=== PATIENT | female | born 1970 | race Hispanic/Latino ===

== ENCOUNTER 2016-11-17 08:01 | Inpatient (IN) | payer MEDICAID, MEDICARE ==
[2016-11-17] MEDS ORDERED: Acetaminophen/Codeine 30-300mg Tablet ONE (20:08)
[2016-11-17] MEDS: Famotidine 20 MG TAB PER TUBE SCH (20:34)
[2016-11-17] MEDS: Metoprolol Tartrate 25 MG TAB PER TUBE SCH (20:34)
[2016-11-17] MEDS: LEVETIRACETAM 500 MG/5 ML PER TUBE SCH (20:35)
[2016-11-17] MEDS: Levemir Flexpen 100 UNITS/ML PEN SC SCH (20:35)
[2016-11-17] MEDS ORDERED: AMOXICILLIN 250 MG PER TUBE SCH (21:00)
[2016-11-17] MEDS: AMOXICILLIN 250 MG/5 ML PER TUBE SCH (21:31)
[2016-11-17] MEDS: DICYCLOMINE 10 MG/5 ML PER TUBE SCH (21:31)
[2016-11-18] MEDS: Enoxaparin Sodium 40 MG/0.4 ML SYRINGE SC SCH (05:21)
[2016-11-18] MEDS: Famotidine 20 MG TAB PER TUBE SCH ×2 (08:22→20:18)
[2016-11-18] MEDS: Metoprolol Tartrate 25 MG TAB PER TUBE SCH ×2 (08:23→20:18)
[2016-11-18] MEDS: AMOXICILLIN 250 MG/5 ML PER TUBE SCH ×3 (08:27→21:35)
[2016-11-18] MEDS: HumaLOG 300 UNITS/3 ML VIAL SC SCH ×3 (08:27→17:58)
[2016-11-18] MEDS: DICYCLOMINE 10 MG/5 ML PER TUBE SCH ×3 (09:54→22:15)
[2016-11-18] MEDS: LEVETIRACETAM 500 MG/5 ML PER TUBE SCH ×3 (10:48→21:34)
[2016-11-18] MEDS: Acetaminophen/Codeine 30-300mg Tablet PER TUBE PRN (20:18)
[2016-11-18] MEDS ORDERED: Insulin Regular 300 UNITS/3 ML VIAL ONE (21:26)
[2016-11-18] MEDS: Levemir Flexpen 100 UNITS/ML PEN SC SCH (21:33)
[2016-11-19] MEDS: Enoxaparin Sodium 40 MG/0.4 ML SYRINGE SC SCH (05:51)
[2016-11-19] MEDS: Metoprolol Tartrate 25 MG TAB PER TUBE SCH ×2 (08:14→20:11)
[2016-11-19] MEDS: Famotidine 20 MG TAB PER TUBE SCH ×2 (08:14→20:11)
[2016-11-19] MEDS: HumaLOG 300 UNITS/3 ML VIAL SC SCH ×3 (08:15→18:00)
[2016-11-19] MEDS: DICYCLOMINE 10 MG/5 ML PER TUBE SCH (08:17)
[2016-11-19] MEDS: LEVETIRACETAM 500 MG/5 ML PER TUBE SCH ×2 (08:24→20:17)
[2016-11-19] MEDS: AMOXICILLIN 250 MG/5 ML PER TUBE SCH ×2 (08:40→20:14)
[2016-11-19] MEDS ORDERED: Scopolamine 1.5 mg/72 hour Patch TOP PRN (15:42)
[2016-11-19] MEDS: Levemir Flexpen 100 UNITS/ML PEN SC SCH (20:16)
[2016-11-19] MEDS: Acetaminophen/Codeine 30-300mg Tablet PER TUBE PRN (20:34)
[2016-11-20] MEDS: Acetaminophen/Codeine 30-300mg Tablet PER TUBE PRN ×2 (04:36→20:01)
[2016-11-20] MEDS: Enoxaparin Sodium 40 MG/0.4 ML SYRINGE SC SCH (06:20)
[2016-11-20] MEDS: HumaLOG 300 UNITS/3 ML VIAL SC SCH ×3 (09:17→17:54)
[2016-11-20] MEDS: Metoprolol Tartrate 25 MG TAB PER TUBE SCH ×2 (09:18→20:01)
[2016-11-20] MEDS: Famotidine 20 MG TAB PER TUBE SCH ×2 (09:18→20:01)
[2016-11-20] MEDS: LEVETIRACETAM 500 MG/5 ML PER TUBE SCH ×2 (09:26→20:00)
[2016-11-20] MEDS: AMOXICILLIN 250 MG/5 ML PER TUBE SCH ×2 (09:30→20:00)
[2016-11-20] MEDS ORDERED: Bisacodyl 10 MG SUPP PR PRN (11:33)
[2016-11-20] MEDS: Milk Of Magnesia 30 ML UDCUP PER TUBE PRN (13:07)
[2016-11-20] MEDS ORDERED: cloNIDine 0.1mg/24 Hour PATCH TD SCH (18:30)
[2016-11-20] MEDS ORDERED: cloNIDine HCl 0.1 MG TAB ONE (18:32)
[2016-11-20] MEDS: Levemir Flexpen 100 UNITS/ML PEN SC SCH (20:26)
[2016-11-21] MEDS: Enoxaparin Sodium 40 MG/0.4 ML SYRINGE SC SCH (05:45)
[2016-11-21] MEDS: LEVETIRACETAM 500 MG/5 ML PER TUBE SCH ×2 (08:18→20:41)
[2016-11-21] MEDS: AMOXICILLIN 250 MG/5 ML PER TUBE SCH ×2 (08:19→20:40)
[2016-11-21] MEDS: Famotidine 20 MG TAB PER TUBE SCH ×2 (08:20→20:36)
[2016-11-21] MEDS: Metoprolol Tartrate 25 MG TAB PER TUBE SCH ×2 (08:21→20:36)
[2016-11-21] MEDS: Acetaminophen/Codeine 30-300mg Tablet PER TUBE PRN ×2 (08:21→20:37)
[2016-11-21] MEDS: HumaLOG 300 UNITS/3 ML VIAL SC SCH ×3 (08:22→17:10)
[2016-11-21] MEDS: Milk Of Magnesia 30 ML UDCUP PER TUBE PRN (12:22)
[2016-11-21] MEDS ORDERED: cloNIDine 0.1mg/24 Hour PATCH TD SCH (14:00)
[2016-11-21] MEDS: Levemir Flexpen 100 UNITS/ML PEN SC SCH (20:39)
[2016-11-22] MEDS: Acetaminophen/Codeine 30-300mg Tablet PER TUBE PRN (04:59)
[2016-11-22] MEDS: Enoxaparin Sodium 40 MG/0.4 ML SYRINGE SC SCH (05:01)
[2016-11-22 06:16] VITALS: BMI 24.4
[2016-11-22 06:44] LABS: #Basophils 0.1 thou/uL (0.0-0.2); #Eosinphils 0.2 thou/uL (0.0-0.7); #Lymphocytes 2.6 thou/uL (1.20-3.40); #Monocytes 1.2 thou/uL (0.11-0.59); #Neutrophils 11.6 thou/uL (1.40-6.50); %Basophils 0.7 % (0.0-1.0); %Lymphocytes 16.4 % (21.0-51.0); %Monocytes 7.6 % (0.0-10.0); %Neutrophils 74.2 % (42.0-75.0); Hemoglobin 12.2 g/dL (12.0-16.0); Mean Corpuscular HGB CONC 31.6 g/dL (32.0-36.0); Mean Corpuscular Hemoglobin 26.2 pg (27.0-31.0); Mean Corpuscular Volume 82.8 fl (81.0-99.0); Mean Platelet Volume 9.5 fL (7.4-10.4); Platelet Count 383 thou/uL (130-400); Red Blood Cell (RBC) Count 4.67 mill/uL (4.20-5.40); White Blood Cell (WBC) Count 15.6 thou/uL (4.8-10.8)
[2016-11-22 07:01] LABS: ALT (SGPT) 26 U/L (8-55); AST (SGOT) 26 U/L (5-34); Albumin 3.6 g/dL (3.5-5.0); Alkaline Phosphatase 89 U/L (40-150); Anion Gap 15 mmol/L (10-20); BUN (Urea Nitrogen) 27 mg/dL (7.0-18.7); Bilirubin, Total 0.2 mg/dL (0.2-1.2); Calc. Creatinine Clearance 99 mL/min (70-130); Calcium 9.4 mg/dL (7.8-10.44); Carbon Dioxide 24 mmol/L (22-29); Chloride 107 mmol/L (98-107); Estimated GFR-MDRD 85; Globulin 4.2 g/dL (2.4-3.5); Glucose 83 mg/dL (70-105); Potassium 4.4 mmol/L (3.5-5.1); Protein, Total 7.8 g/dL (6.0-8.3); Sodium 142 mmol/L (136-145)
[2016-11-22] MEDS ORDERED: Acetaminophen/Codeine 30-300mg Tablet PER TUBE PRN (07:37)
[2016-11-22] MEDS ORDERED: Famotidine 20 MG TAB ONE (08:09)
[2016-11-22] MEDS: Famotidine 20 MG TAB PER TUBE SCH ×2 (08:23→20:11)
[2016-11-22] MEDS: Metoprolol Tartrate 25 MG TAB PER TUBE SCH ×2 (08:23→20:11)
[2016-11-22] MEDS: AMOXICILLIN 250 MG/5 ML PER TUBE SCH ×2 (08:24→20:11)
[2016-11-22] MEDS: LEVETIRACETAM 500 MG/5 ML PER TUBE SCH ×2 (08:25→20:11)
[2016-11-22] MEDS: HumaLOG 300 UNITS/3 ML VIAL SC SCH ×3 (08:28→17:01)
[2016-11-22] MEDS ORDERED: Nystatin Powder 15 GM BOT TOP PRN (17:16)
[2016-11-22] MEDS ORDERED: HYDROcodone/Acetaminophen 10/325 mg Tablet PO PRN (19:00)
[2016-11-22] MEDS: HYDROcodone/Acetaminophen 10/325 mg Tablet PER TUBE PRN (20:35)
[2016-11-22] MEDS: Levemir Flexpen 100 UNITS/ML PEN SC SCH (20:37)
[2016-11-23] MEDS: HumaLOG 300 UNITS/3 ML VIAL SC SCH ×3 (09:44→18:08)
[2016-11-23] MEDS: Enoxaparin Sodium 40 MG/0.4 ML SYRINGE SC SCH (09:44)
[2016-11-23] MEDS: Metoprolol Tartrate 25 MG TAB PER TUBE SCH ×2 (09:45→21:26)
[2016-11-23] MEDS: Famotidine 20 MG TAB PER TUBE SCH ×2 (09:45→21:26)
[2016-11-23] MEDS: LEVETIRACETAM 500 MG/5 ML PER TUBE SCH (09:53)
[2016-11-23] MEDS: AMOXICILLIN 250 MG/5 ML PER TUBE SCH (09:54)
[2016-11-23] MEDS ORDERED: cloNIDine 0.2mg/24 Hour PATCH ONE (10:15)
[2016-11-23] MEDS ORDERED: levETIRAcetam 500 mg/5 ml Oral Solution ONE (10:19)
[2016-11-23] MEDS: HYDROcodone/Acetaminophen 10/325 mg Tablet PER TUBE PRN ×2 (12:56→22:02)
[2016-11-23] MEDS ORDERED: Loperamide HCl 2 MG CAP PO PRN (16:17)
[2016-11-23] MEDS: levETIRAcetam 500 mg/5 ml Oral Solution PO SCH (21:26)
[2016-11-23] MEDS: Levemir Flexpen 100 UNITS/ML PEN SC SCH (21:35)
[2016-11-24] MEDS: HumaLOG 300 UNITS/3 ML VIAL SC SCH ×3 (09:27→18:28)
[2016-11-24] MEDS: Saccharomyces boulardii 250 MG CAP PO SCH (09:30)
[2016-11-24] MEDS: levETIRAcetam 500 mg/5 ml Oral Solution PO SCH ×2 (09:30→20:18)
[2016-11-24] MEDS: Famotidine 20 MG TAB PER TUBE SCH ×2 (09:31→20:17)
[2016-11-24] MEDS: Metoprolol Tartrate 25 MG TAB PER TUBE SCH ×2 (09:31→20:17)
[2016-11-24] MEDS: Enoxaparin Sodium 40 MG/0.4 ML SYRINGE SC SCH (09:34)
[2016-11-24] MEDS: HYDROcodone/Acetaminophen 10/325 mg Tablet PER TUBE PRN ×2 (12:58→20:59)
[2016-11-24] MEDS: Levemir Flexpen 100 UNITS/ML PEN SC SCH (20:23)
[2016-11-25] MEDS: HYDROcodone/Acetaminophen 10/325 mg Tablet PER TUBE PRN ×3 (04:08→20:26)
[2016-11-25] MEDS: levETIRAcetam 500 mg/5 ml Oral Solution PO SCH ×2 (09:43→20:27)
[2016-11-25] MEDS: Enoxaparin Sodium 40 MG/0.4 ML SYRINGE SC SCH (09:43)
[2016-11-25] MEDS: Saccharomyces boulardii 250 MG CAP PO SCH (09:43)
[2016-11-25] MEDS: Metoprolol Tartrate 25 MG TAB PER TUBE SCH ×2 (09:44→20:26)
[2016-11-25] MEDS: HumaLOG 300 UNITS/3 ML VIAL SC SCH ×3 (09:45→20:28)
[2016-11-25] MEDS: Famotidine 20 MG TAB PER TUBE SCH ×2 (10:16→20:26)
[2016-11-25] MEDS: Levemir Flexpen 100 UNITS/ML PEN SC SCH (20:27)
[2016-11-26] MEDS: HYDROcodone/Acetaminophen 10/325 mg Tablet PER TUBE PRN (04:09)
[2016-11-26] MEDS ORDERED: HYDROcodone/Acetaminophen 5/325 mg Tablet PER TUBE PRN (07:10)
[2016-11-26] MEDS ORDERED: hydrOXYzine 25 MG TAB PER TUBE PRN (07:42)
[2016-11-26] MEDS: Enoxaparin Sodium 40 MG/0.4 ML SYRINGE SC SCH (09:08)
[2016-11-26] MEDS: HumaLOG 300 UNITS/3 ML VIAL SC SCH ×3 (09:09→18:27)
[2016-11-26] MEDS: levETIRAcetam 500 mg/5 ml Oral Solution PO SCH (09:12)
[2016-11-26] MEDS: Famotidine 20 MG TAB PER TUBE SCH (09:13)
[2016-11-26] MEDS: Saccharomyces boulardii 250 MG CAP PO SCH (09:13)
[2016-11-26] MEDS: Metoprolol Tartrate 25 MG TAB PER TUBE SCH (09:13)
[2016-11-26 18:38] VITALS: BP 155/77; TEMP 98
--- NOTE | 2016-11-27 07:53 | DIS ---
DATE OF ADMISSION: 11/17/2016 DATE OF DISCHARGE: 11/26/2016 ADMISSION DIAGNOSES: Physical deconditioning, history of stroke, urinary tract infection, seizure disorder. SECONDARY DIAGNOSES: Hypertension, type 2 diabetes mellitus. PROCEDURES: None. HOSPITAL COURSE: A 45-year-old female transitioned from [facility] in [place] to [facility] for skilled care and participation with physical therapy status post admission where she was treated for seizure and urinary tract infection. It was felt that the UTI prompted the seizure. She was initially treated with Rocephin and transitioned to amoxicillin. She was evaluated by Neurology and treated with Keppra as far as her seizures and had no further seizures in [place] or our facility here. The reason for the transfer of care was secondary to her deconditioned state. 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 Her medical decision maker is her POA who was unable to take care of her at home , thus she was transitioned to our facility. The patient did complete her course of amoxicillin during her stay with no further issue. She did not participate well with physical therapy and was reluctant to do so throughout her stay. Due to this, it was decided that she has to transfer to a long-term care facility, which was agreed upon by her POA. DISCHARGE DISPOSITION: The patient will relocate to [facility]. DISCHARGE MEDICATIONS: Keppra 1000 mg twice daily via PEG tube, clonidine patch 0.2 every 7 days, amlodipine 5 mg daily per PEG, metoprolol 25 mg b.i.d. per PEG, Levemir 20 units at bedtime, Humalog 5 units t.i.d., Pepcid 20 mg b.i.d. per PEG, dicyclomine 10 mg t.i.d. per PEG, aspirin 81 mg daily per PEG, Hallock 5/325 q.6 hours p.r.n. per PEG. MTDD
[2016-11-28] MEDS ORDERED: cloNIDine 0.2mg/24 Hour PATCH TD SCH (09:00)
== END 2016-11-26 19:15 | DRG 689 ==
LOC: BURMED 12:48
PROVIDERS: ADMIT Family Medicine; ATTEND Family Medicine
DX: N39.0 Urinary tract infection, site not specified (principal); G82.50 Quadriplegia, unspecified; I42.9 Cardiomyopathy, unspecified; E87.2 Acidosis; E87.5 Hyperkalemia; R13.12 Dysphagia, oropharyngeal phase; G40.909 Epilepsy, unspecified, not intractable, without status epilepticus; I10 Essential (primary) hypertension; E11.9 Type 2 diabetes mellitus without complications; I69.365 Other paralytic syndrome following cerebral infarction, bilateral; I69.320 Aphasia following cerebral infarction; Z93.1 Gastrostomy status; S43.086A Other dislocation of unspecified shoulder joint, initial encounter; X58.XXXA Exposure to other specified factors, initial encounter
CPT/HCPCS: 36415; 36416; 80053; 85025; G8987-GO-CM; G8988-GO-CL; G8989-GO-CM; G8996-GN-CN; G8997-GN-CM; J1650; J1815